=== PATIENT | female | born 1995 | race Caucasian/White ===

== ENCOUNTER 2017-01-01 16:03 | Emergency (ER) ==
[2017-01-01 16:18] VITALS: BP 118/75; TEMP 98.2; BMI 23.3
--- NOTE | 2017-01-01 16:29 | ED.PDOC ---
General ED Provider: Dr. MOMO SANTO JR Chief Complaint: Abdominal Pain Stated Complaint: Pt stated she is have abdominal cramps from her cycle. They are like the ones she usually has. They were worse about 1430 today. She stated she fell over in the yard, and started vomiting. She took Ibuprofen 600 mg approx 20 minutes [employer]. Pt stated the cramps are not as bas at this time.[End] 98.2 59 16 118/75 4/10 Pain was 10/10 at it worse. Pain 4/10 not after Ibuprofen 600 mg. Pt started her cycle today. Time Seen by Physician: 16:45 Mode of Arrival: Walk-In Information Source: Patient Exam Limitations: No limitations Nursing and Triage Documentation Reviewed and Agree: No Review of Systems - Review Of Systems Constitutional: Reports: Malaise, Weakness Eyes: Reports: No symptoms Ears, Nose, Mouth, Throat: Reports: No symptoms Respiratory: Reports: No symptoms Cardiac: Reports: No symptoms GI: Reports: Nausea, Vomiting : Reports: Pain, Other (menstrual cramps) Musculoskeletal: Reports: No symptoms Skin: Reports: No symptoms Neurological: Reports: No symptoms Endocrine: Reports: No symptoms Hematologic/Lymphatic: Reports: No symptoms All Other Systems: Other Past Medical History - Past Medical History Endocrine: Reports: None Cardiovascular: Reports: None Respiratory: Reports: None Hematological: Reports: None Gastrointestinal: Reports: None Genitourinary: Reports: Kidney stones Neuro/Psych: Reports: Depression Musculoskeletal: Reports: None Cancer: Reports: None Last Menstrual Period: 01/01/17 - Surgical History General Surgical History: Reports: Tonsillectomy - Family History Family History: Reports: Unknown - Social History Smoking Status: Light tobacco smoker Hx Substance Use: Yes Alcohol Screening: Occasionally - Immunizations Tetanus Shot up to Date: Yes Physical Exam - Physical Exam Appearance: Well-appearing Pain Distress: Mild Neck: Supple Respiratory: Airway patent Cardiovascular: RRR GI/: Soft, Tender (suprapubic) Musculoskeletal: Normal strength, ROM intact, No edema, No calf tenderness Skin: Warm, Dry, Normal color Neurological: Sensation intact, Motor intact, Reflexes intact, Cranial nerves intact, Alert, Oriented Psychiatric: Affect appropriate Critical Care Note - Critical Care Note Total Time (mins): 0 Course - Course Orders, Labs, Meds: Orders Category Date Time Status TEST URINE [URINE ] Stat LAB 01/01/17 16:12 Uncollected Vital Signs: Temp Pulse Resp BP Pulse Ox 01/01/17 16:05 98.2 F 59 L 16 118/75 98 Departure - Departure Time of Disposition: 16:45 Disposition: HOME SELF-CARE Discharge Problem: Abdominal pain, Menstrual cramps Instructions: Dysmenorrhea (ED) Condition: Good Pt referred to PMD for follow-up: Yes Additional Instructions: excessive pain with menstruation may be associated with return if any worsening recommend Motrin for usual menstrual pain Allergies/Adverse Reactions: Allergies clindamycin Adverse Reaction (Verified 01/01/17 16:14) Penicillins Adverse Reaction (Verified 01/01/17 16:14) Home Medications: Ambulatory Orders Lamotrigine [Lamictal] 100 mg PO DAILY 01/01/17 Sertraline HCl [Zoloft] 50 mg PO DAILY 01/01/17
== END 2017-01-01 16:52 | disposition home or self-care (01) ==
LOC: ED 16:03
DX: N94.6 Dysmenorrhea, unspecified (principal); F17.210 Nicotine dependence, cigarettes, uncomplicated
CPT/HCPCS: 99281

== ENCOUNTER 2017-05-07 16:08 | Outpatient (CLI) ==
[2017-05-07 16:48] LABS: BASOPHILS % (AUTO) 0.4 % (0.0-3.0); EOSINOPHILS % (AUTO) 0.1 % (0.0-7.0); HEMATOCRIT 37.5 % (37.0-47.0); HEMOGLOBIN 12.8 g/dl (12.0-16.0); IMMATURE GRANULOCYTE % (AUTO) 0.3 % (0.0-5.0); LYMPHOCYTES # (AUTO) 1.8 K/uL (0.60-3.4); LYMPHOCYTES % (AUTO) 24.2 (10.0-50.0); MEAN CORPUSCULAR HEMOGLOBIN 28.1 pg (27.0-31.0); MEAN CORPUSCULAR HGB CONC 34.1 (31.8-35.4); MEAN CORPUSCULAR VOLUME 82.2 fl (81.0-99.0); MONOCYTES # (AUTO) 0.6 K/uL (0.4-2.0); MONOCYTES % (AUTO) 7.5 (0-10); NEUTROPHILS # (AUTO) 5.1 K/ul (2.0-6.9); NEUTROPHILS % (AUTO) 67.5; PLATELET COUNT 255 10^3/uL (140-440); RED BLOOD COUNT 4.56 10^6/ul (4.20-5.40); WHITE BLOOD COUNT 7.55 K/ul (4.6-10.2)
[2017-05-07 17:26] LABS: ALBUMIN/GLOBULIN RATIO 0.95; ANION GAP 12.4; BILIRUBIN,TOTAL 0.24 mg/dL (0.00-1.20); BUN/CREATININE RATIO 16.66; CALCIUM 10.2 mg/dL (8.2-10.2); CHOL/HDL RATIO 3.7 (4.5-5.5); CREATININE 0.78 mg/dL (0.60-1.30); POTASSIUM 3.4 mmol/L (3.5-5.10); TOTAL PROTEIN 8.2 g/dL (6.4-8.2)
== END 2017-05-07 16:09 | disposition home or self-care (01) ==
LOC: LAB 16:08
PROVIDERS: ATTEND Nurse Practitioner Psychiatric/Mental Health
DX: Z79.899 Other long term (current) drug therapy (principal)
CPT/HCPCS: 36415; 80053; 80061; 82306; 82607; 84439; 84443; 85025